=== PATIENT | male | born 1975 | race Caucasian/White ===

== ENCOUNTER 2020-01-27 14:05 | Observation (INO) ==
[2020-01-27] MEDS ORDERED: CLINDAMYCIN INJ 900 MG in PREMIX 1 EACH IV ONE (14:58)
[2020-01-27] MEDS ORDERED: SODIUM CHLORIDE 0.9% 1,000 ML IV STA (15:10)
[2020-01-27] MEDS ORDERED: PROMETHAZINE INJ 25 MG in SODIUM CHLORIDE 0.9% 50 ML IV PRN (17:05)
[2020-01-27] MEDS ORDERED: ONDANSETRON 4 MG/2 ML VIAL IV PRN (17:05)
[2020-01-27] MEDS ORDERED: HYDROmorphone 2 MG/1 ML VIAL IV PRN (17:05)
[2020-01-27] MEDS ORDERED: MEPERIDINE 25 MG/1 ML VIAL IV PRN (17:05)
[2020-01-27] MEDS ORDERED: diphenhydrAMINE 50 MG/1 ML VIAL IV PRN (17:05)
[2020-01-27] MEDS ORDERED: SUGAMMADEX 200 MG/2 ML VIAL IV ONE (17:22)
[2020-01-27] MEDS ORDERED: TISSUE ADHESIVE 1 EACH APPLICATOR TOP ONE (17:31)
[2020-01-27] MEDS ORDERED: ACETAMINOPHEN 325 MG TABLET PO PRN (17:38)
[2020-01-27] MEDS ORDERED: propofoL 200 MG/20 ML VIAL IV ONE (17:49)
[2020-01-27] MEDS ORDERED: ROCURONIUM 100 MG/10 ML VIAL IV ONE (17:50)
[2020-01-27] MEDS ORDERED: KETOROLAC 30 MG/1 ML VIAL ONE (17:50)
[2020-01-27] MEDS ORDERED: DESFLURANE 1 UNIT/15 MINUTE INH ONE (17:50)
[2020-01-27] MEDS ORDERED: MIDAZOLAM 2 MG/2 ML VIAL ONE (17:50)
[2020-01-27] MEDS ORDERED: LIDOCAINE 2% 5 ML VIAL ONE (17:50)
[2020-01-27] MEDS ORDERED: SUCCINYLCHOLINE 200 MG/10 ML VIAL ONE (17:50)
[2020-01-27] MEDS ORDERED: fentaNYL 100 MCG/2 ML VIAL ONE (17:50)
[2020-01-27] MEDS ORDERED: ONDANSETRON 4 MG/2 ML VIAL ONE (17:50)
[2020-01-27] MEDS: LACTATED RINGERS 1,000 ML IV SCH (20:32)
[2020-01-27] MEDS: CIPROFLOXACIN INJ 400 MG in PREMIX 1 EACH IV SCH (20:33)
[2020-01-27] MEDS: HYDROmorphone 2 MG/1 ML VIAL IV PRN (20:45)
[2020-01-27] MEDS: metroNIDAZOLE INJ 500 MG in PREMIX 1 EACH IV SCH (22:34)
[2020-01-28] MEDS: HYDROmorphone 2 MG/1 ML VIAL IV PRN (02:36)
[2020-01-28] MEDS: LACTATED RINGERS 1,000 ML IV SCH ×2 (02:40→10:12)
[2020-01-28] MEDS: CIPROFLOXACIN INJ 400 MG in PREMIX 1 EACH IV SCH ×2 (03:47→11:47)
[2020-01-28 05:50] LABS: Basophils % 0.2 % (0.0-0.8); Eosinophils # 0.2 10*3/uL (0.0-0.87); Eosinophils % 1.8 % (0.00-10.9); Hematocrit 42.3 VOL% (42.0-52.0); Hemoglobin 14.5 GM/DL (14.0-18.0); Immature Granulocytes % 0.4 %; Immature Granulocytes Absolute 0.05 #; Lymphocytes # 1.5 10*3/uL (1.4-4.0); Lymphocytes % 11.7 % (21.2-54.2); Mean Corpuscular HGB Conc 34.3 GM/DL (32-36); Mean Corpuscular Volume 102.2 FL (87-102); Mean Platelet Volume 10.8 FL (9.6-12.0); Monocytes % 7.7 % (1.7-12.7); Neutrophils % 78.2 % (38.7-73.9); Platelet Count 205 T/CUMM (130-400); Red Blood Count 4.14 MC/CUMM (3.8-5.5); Red Cell Distribution Width 12.3 % (9.3-17.3); White Blood Count 12.5 T/CUMM (4-12)
[2020-01-28] MEDS: metroNIDAZOLE INJ 500 MG in PREMIX 1 EACH IV SCH (05:52)
[2020-01-28 06:10] LABS: Calcium 7.9 MG/DL (8.5-10.1); Osmolality,Calculated 268.2 MOS/KG (273-304)
[2020-01-28 08:18] VITALS: BP 106/66
[2020-01-28] MEDS ORDERED: PANTOPRAZOLE 40 MG TABLET PO SCH (09:00)
[2020-01-28] MEDS ORDERED: ENOXAPARIN 40 MG/0.4 ML SYRINGE SUBCUT SCH (09:00)
== END 2020-01-28 13:05 | disposition home or self-care (01) ==
LOC: N.EDINP 14:05 → N.ED 14:05 → N.3E 16:30
PROVIDERS: ADMIT Student in an Organized Health Care Education/Training Program; ATTEND Student in an Organized Health Care Education/Training Program